=== PATIENT | female | born 1995 | race Caucasian/White ===

== ENCOUNTER → 2018-10-18 | Outpatient (CLI) | payer BC ==
--- NOTE | 2018-10-18 16:41 | MR ---
EXAMINATION TYPE: MR knee LT wo con DATE OF EXAM: 10/18/2018 COMPARISON: Outside radiographs 10/10/2018 HISTORY: 23-year-old female pain in left knee TECHNIQUE: Multiplanar, multisequence imaging of the left knee knee is performed without IV contrast. FINDINGS: ACL, PCL, MCL, and LCL complex are intact. Both medial and lateral menisci are intact. Overall medial lateral compartment articular cartilage volumes are maintained. There are focal bone bruises along the medial inferior aspect of the patella and a large bone bruise along the anterior to middle third lateral femoral condyle. There is a 1.1 x 0.6 cm loose body in the infrapatellar joint space. On outside radiographs, this was located just behind the patella. Findings is compatible with a mobile loose body. There is some heterogeneous signal within the inferior patellar articular cartilage, refer to axial i mage 12. Also on axial image 12, there is very shallow trochlear groove and a shortened medial trochl ear facet. TT-TG distance is 2.1. Extensor mechanism remains intact. The medial patellofemoral ligament appears intact. Small knee joint effusion. No Becerra's cyst. Normal popliteal artery anatomy and muscle bulk. No suspicious bone marrow replacement. IMPRESSION: 1. Kissing bone contusions corresponding to transient lateral patellar dislocation and relocation. 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 2. No discrete fracture or MPFL tear seen. 3. A 1.1 cm chronic loose body in the infrapatellar joint space probably arising from inferior patell ar articular cartilage. 4. No meniscal or cruciate/collateral ligament tear.
== END | disposition home or self-care (01) ==
LOC: RADMRIMAIN 15:20
PROVIDERS: ATTEND Orthopaedic Surgery
DX: S80.02XA Contusion of left knee, initial encounter (principal)